=== PATIENT | male | born 1955 | race Caucasian/White ===

== ENCOUNTER 2018-02-16 13:40 | Emergency (ER) | payer MEDICARE, MEDICAID ==
[2018-02-16 15:32] LABS: BASO # 0.1 K/uL (0.0-0.2); EOS # 0.1 K/uL (0.0-0.7); EOS % 1.6 % (0.0-4.0); HEMOGLOBIN 13.1 g/dL (12.0-18.0); LYMPH # 1.8 K/uL (1.0-4.3); LYMPH % 30.3 % (20.0-40.0); MEAN CELL VOLUME 92.4 fL (80.0-94.0); MEAN CORPUSCULAR HEMOGLOBIN 32.1 pg (27.0-31.0); MEAN CORPUSCULAR HGB CONC 34.8 g/dL (33.0-37.0); MEAN PLATELET VOLUME 8.2 fL (7.2-11.7); MONO # 0.6 K/uL (0.0-0.8); MONO % 10.7 % (0.0-10.0); NEUT # 3.4 K/uL (1.8-7.0); NEUT % 56.4 % (50.0-75.0); NRBC % 0.1 % (0.0-2.0); RBC 4.07 Mil/uL (4.40-5.90); RED CELL DISTRIBUTION WIDTH 12.7 % (11.5-14.5)
[2018-02-16 15:33] VITALS: BMI 35.6
[2018-02-16 15:41] LABS: INR 1.2; PROTHROMBIN TIME 12.9 SECONDS (9.7-12.2)
[2018-02-16 15:42] LABS: ALB/GLOB RATIO 1.2 (1.0-2.1); ALBUMIN 4.2 g/dL (3.5-5.0); ALT/SGPT 35 U/L (21-72); AST/SGOT 49 U/L (17-59); BLOOD UREA NITROGEN 14 mg/dL (9-20); CALCIUM 8.8 mg/dl (8.6-10.4); GFR NON-AFRICAN AMERICAN > 60; LIPASE 151 U/L (23-300)
[2018-02-16 16:07] VITALS: BP 145/81; PULSE 49; RESP 16; TEMP 98.1; O2SAT 100
--- NOTE | 2018-02-16 16:23 | C.PDOC ---
History Of Present Illness 62-year-old male, presents to the emergency department with complaints of rectal bleeding. Patient states he has been experiencing bright red blood per rectum when he has a bowel movement x2 days. Patient states he has no pain, rectal pain, or any other associated symptoms. He denies any dizziness. No other complaints at this time. Time Seen by Provider: 02/16/18 14:28 Chief Complaint (Nursing): GI Problem History Per: Patient History/Exam Limitations: no limitations Past Medical History Reviewed: Historical Data, Nursing Documentation, Vital Signs Vital Signs: Last Vital Signs Temp 98.1 F 02/16/18 16:06 Pulse 49 L 02/16/18 16:06 Resp 16 02/16/18 16:06 BP 145/81 02/16/18 16:06 Pulse Ox 100 02/16/18 16:06 - Medical History PMH: HTN Family History: States: No Known Family Hx - Social History Hx Alcohol Use: No Hx Substance Use: No - Immunization History Hx Tetanus Toxoid Vaccination: No Hx Influenza Vaccination: No Hx Pneumococcal Vaccination: No Review Of Systems Constitutional: Negative for: Fever Cardiovascular: Negative for: Chest Pain Gastrointestinal: Positive for: Hematochezia. Negative for: Nausea, Vomiting, Abdominal Pain Physical Exam - Physical Exam Appears: Non-toxic, No Acute Distress Skin: Warm, Dry, No Rash Head: Atraumatic, Normacephalic Eye(s): bilateral: Normal Inspection, PERRL, EOMI Nose: Normal Oral Mucosa: Moist Lips: Normal Appearing Neck: Normal ROM, Supple Chest: Symmetrical Cardiovascular: Rhythm Regular, No Friction Rub, No Murmur Respiratory: Normal Breath Sounds, No Accessory Muscle Use Gastrointestinal/Abdominal: Soft, No Tenderness, No Guarding, No Rebound Rectal: Other (large external hemorrhoids with a small area of bleeding. ) Extremity: Normal ROM, No Deformity, No Swelling Neurological/Psych: Oriented x3, Normal Speech, Normal Motor Gait: Steady ED Course And Treatment - Laboratory Results Result Diagrams: 02/16/18 15:24 02/16/18 15:24 O2 Sat by Pulse Oximetry: 100 Pulse Ox Interpretation: Normal (RA) Medical Decision Making Medical Decision Making: Patient has no pain. Bleeding is most likely from hemorrhoids, but instructed to still follow up with GI for possible colonscopy. Disposition - Disposition Referrals: Delio Mancera MD [Medical Doctor] - Chico Lugo MD [Staff Provider] - Disposition: HOME/ ROUTINE Disposition Time: 16:00 Condition: STABLE Additional Instructions: Follow up with the medical doctor for GI referral within 1-2 days without fail. Return if worsened. Prescriptions: Docusate [Colace] 100 mg PO DAILY #30 cap Hydrocortisone 2.5% (Rectal) [Anusol-Hc] 1 appl RC BID #1 tube Instructions: Bloody Stools, Adult (DC) Forms: [employer] ([employer]) - Clinical Impression Clinical Impression: Hemorrhoids, Rectal bleeding - Scribe Statement The provider has reviewed the documentation as recorded by the Scribe (Marbin Baig) All medical record entries made by the Scribe were at my direction and personally dictated by me. I have reviewed the chart and agree that the record accurately reflects my personal performance of the history, physical exam, medical decision making, and the department course for this patient. I have also personally directed, reviewed, and agree with the discharge instructions and disposition.
== END 2018-02-16 16:41 | disposition home or self-care (01) ==
LOC: C.ER 13:40
DX: K62.5 Hemorrhage of anus and rectum (principal); K64.4 Residual hemorrhoidal skin tags; I10 Essential (primary) hypertension
CPT/HCPCS: 80053; 83690; 85025; 85610; 85730; 99285; G0328